=== PATIENT | male | born 1990 | race African-American/Black ===

== ENCOUNTER 2019-11-22 10:58 | Emergency (ER) | payer OTHER ==
[~2019-11-22] VITALS: Ht 193 cm; Wt 108.7 kg
[2019-11-22] MEDS ORDERED: EFFE150C2 PO (11:12)
[2019-11-22] MEDS ORDERED: KETOROLAC 60MG 2ML VIAL IM ONE (12:15)
[2019-11-22] MEDS ORDERED: BACTRIM 160MG/800MG DS TAB PO ONE (12:15)
[2019-11-22] MEDS ORDERED: BACT800T5 PO (12:24)
[2019-11-22 12:44] VITALS: BP 108/62
== END 2019-11-22 12:45 | disposition home or self-care (01) ==
LOC: M ED 10:58
DX: G89.18 Other acute postprocedural pain (principal); S31.20XA Unspecified open wound of penis, initial encounter; X58.XXXA Exposure to other specified factors, initial encounter; Y92.9 Unspecified place or not applicable; Y93.9 Activity, unspecified; Y99.9 Unspecified external cause status; Z88.0 Allergy status to penicillin
CPT/HCPCS: 96372; 99283; J1885